=== PATIENT | female | born 1980 | race Caucasian/White ===

== ENCOUNTER → 2020-07-21 11:30 | Outpatient (CLI) | payer OTHER, SELFPAY ==
[2016-03-01 09:05] VITALS: BMI 28.9
[2020-07-21 13:18] LABS: AST(SGOT) 12 U/L (15-37); Alanine Aminotransfer ALT/SGPT 18 U/L (13-56); Alkaline Phosphatase 69 U/L (45-117); Bilirubin, Direct 0.21 mg/dL (0.00-0.30); Ferritin 29 ng/mL (8-252); Globulin 3.7 g/dL (2.2-4.2); Iron 126 ug/dL (50-170); Protein, Total 7.7 g/dL (6.4-8.2); T4 Free Direct 1.54 ng/dL (0.76-1.46); Thyroid Stim Hormone (TSH) 0.06 uIU/mL (0.358-3.74)
[2020-07-21 13:22] LABS: Vitamin B12 339 pg/mL (211-911); Vitamin D,25 Hydroxy 35.1 ng/mL
== END ==
LOC: MFPLAB 11:31
PROVIDERS: PCP Family Medicine; Referring Provider Family Medicine; Visit Provider Family Medicine
DX: E03.9 Hypothyroidism, unspecified (principal); E55.9 Vitamin D deficiency, unspecified; R79.89 Other specified abnormal findings of blood chemistry; R53.83 Other fatigue
CPT/HCPCS: 36415; 80076; 82306; 82607; 82728; 83540; 84439; 84443

== ENCOUNTER → 2023-02-14 | Outpatient (CLI) | payer OTHER, SELFPAY ==
[2023-02-14 17:47] LABS: Color, Urine Yellow (Yellow); Glucose, Dipstick Normal (Normal); Ketone-Dipstick 15 mg/dl (Negative); Leukocyte Esterase-Dipstick 25 /ul (Negative); Nitrite-Dipstick Negative (Negative); Occult Blood-Urine Negative /ul (Negative); Protein-Dipstick 15 mg/dl (Negative); Specific Gravity, Urine 1.025 (1.002-1.030); Urine Bilirubin Dipstick Negative (Negative); Urine Clarity Sl. Cloudy (Clear); Urine Urobilinogen Normal (Normal)
[2023-02-14 17:51] LABS: Hematocrit 42.2 % (37-47); Hemoglobin 13.6 g/dL (12.0-15.0); Mean Corp Hgb Conc 32.2 g/dL (32-36); Mean Corpuscular Hgb 27.6 pg (27.0-32.0); Mean Corpuscular Volume 85.6 fL (81-99); Mean Platelet Vol. 11.5 fl (6.2-12.0); Platelet Count 272 K/mm3 (150-450); RBC Distribution Width CV 13.2 % (11.6-14.6); RBC Distribution Width SD 40.8 fl (35.1-43.9); Red Blood Count 4.93 M/mm3 (4.2-5.4); White Blood Count 7.3 K/mm3 (4.4-11.0)
[2023-02-14 17:59] LABS: Bacteria 1+ /hpf (None Seen); Calcium Oxalate Crystals Ur 1+ /hpf (<or=2+); Mucous, Urine 3+ /hpf (<or=2+); Squamous Epithelial Cells - UA 5-10 SEEN /hpf (5-10)
[2023-02-14 18:00] LABS: Red Blood Cells-Urine 0-5 SEEN /hpf (0-5); White Blood Cells 0-5 SEEN /hpf (0-5)
[2023-02-14 18:03] LABS: Erythrocyte Sedimentation Rate 7 mm/hr (0-30)
[2023-02-14 18:12] LABS: Vitamin B12 237 pg/mL (211-911); Vitamin D,25 Hydroxy 44.6 ng/mL
[2023-02-14 18:23] LABS: ALB/GLOB Ratio 1.2 RATIO (0.9-2.4); AST(SGOT) 17 U/L (15-37); Alanine Aminotransfer ALT/SGPT 16 U/L (13-56); Albumin, Serum 4.3 g/dL (3.2-5.0); Alkaline Phosphatase 70 U/L (45-117); Anion Gap 6 (5-15); BUN 9 mg/dL (7-18); BUN/Creat Ratio 10.9 RATIO (10-20); Bilirubin, Direct 0.13 mg/dL (0.00-0.30); Calcium,Total 9.2 mg/dL (8.5-10.1); Chloride 107 mmol/L (98-107); Creatinine, Serum 0.82 mg/dL (0.55-1.02); EST Glomerular Filtration Rate 81 mL/min (>60); Est Glom Filt Rate - Afr Amer 98 mL/min (>60); Ferritin 20 ng/mL (8-252); Free T3 2.3 pg/mL (2.18-3.98); Globulin 3.6 g/dL (2.2-4.2); Glucose 85 mg/dL (74-106); Iron 46 ug/dL (50-170); Potassium 3.5 mmol/L (3.5-5.1); Protein, Total 7.9 g/dL (6.4-8.2); Sodium Level 137 mmol/L (136-145); T4 Free Direct 0.92 ng/dL (0.76-1.46)
[2023-02-16 04:07] LABS: Thyroid Peroxidase AB > 600 IU/mL (0-34)
== END | disposition home or self-care (01) ==
LOC: MFPLAB 14:31
PROVIDERS: PCP Family Medicine; Visit Provider Family Medicine
DX: Z00.00 Encounter for general adult medical examination without abnormal findings (principal); R53.83 Other fatigue; E55.9 Vitamin D deficiency, unspecified; E03.9 Hypothyroidism, unspecified; R82.2 Biliuria; R80.9 Proteinuria, unspecified
CPT/HCPCS: 36415; 80053; 81001; 82248; 82306; 82607; 82728; 83540; 84439; 84443; 84481; 85027; 85652; 86376

== ENCOUNTER → 2023-05-08 | Outpatient (CLI) | payer OTHER, SELFPAY ==
[2023-05-08 10:56] LABS: Vitamin B12 285 pg/mL (211-911)
[2023-05-09 09:13] LABS: T4 Free Direct 1.03 ng/dL (0.76-1.46)
== END | disposition home or self-care (01) ==
LOC: MFPLAB 08:02
PROVIDERS: PCP Family Medicine; Visit Provider Family Medicine
DX: E03.9 Hypothyroidism, unspecified (principal); E53.8 Deficiency of other specified B group vitamins
CPT/HCPCS: 36415; 82607; 84439; 84443

== ENCOUNTER → 2023-06-14 | Outpatient (CLI) | payer OTHER, SELFPAY ==
[2023-06-14 12:54] LABS: Vitamin B12 524 pg/mL (211-911)
[2023-06-14 12:58] LABS: T4 Free Direct 0.91 ng/dL (0.76-1.46); Thyroid Stim Hormone (TSH) 3.28 uIU/mL (0.358-3.74)
== END | disposition home or self-care (01) ==
LOC: MFPLAB 09:51
PROVIDERS: PCP Family Medicine; Visit Provider Family Medicine
DX: E03.9 Hypothyroidism, unspecified (principal); E53.8 Deficiency of other specified B group vitamins
CPT/HCPCS: 36415; 82607; 84439; 84443

== ENCOUNTER → 2023-07-24 | Outpatient (CLI) | payer OTHER, SELFPAY ==
[2023-07-24 11:01] LABS: Thyroid Stim Hormone (TSH) 5.12 uIU/mL (0.358-3.74)
[2023-07-24 11:20] LABS: Vitamin D,25 Hydroxy 33.6 ng/mL
== END | disposition home or self-care (01) ==
LOC: MFPLAB 09:07
PROVIDERS: PCP Family Medicine; Visit Provider Family Medicine
DX: E03.9 Hypothyroidism, unspecified (principal); E55.9 Vitamin D deficiency, unspecified
CPT/HCPCS: 36415; 82306; 84443

== ENCOUNTER → 2023-08-30 | Outpatient (CLI) | payer OTHER, SELFPAY ==
[2023-08-30 10:43] LABS: T4 Free Direct 1.18 ng/dL (0.76-1.46); Thyroid Stim Hormone (TSH) 1.16 uIU/mL (0.358-3.74)
== END | disposition home or self-care (01) ==
LOC: MFPLAB 09:15
PROVIDERS: PCP Family Medicine; Visit Provider Family Medicine
DX: E03.9 Hypothyroidism, unspecified (principal)
CPT/HCPCS: 36415; 84439; 84443

== ENCOUNTER → 2024-04-08 | Outpatient (CLI) | payer OTHER, SELFPAY ==
[2024-04-08 12:48] LABS: Absolute Lymphocyte Count 2.04 X10^3/uL (0.83-4.51); Absolute Neutrophil Count 2.8 X10^3/uL (2.0-7.7); Basophil# 0.03 X10^3/uL; Basophil% 0.6 % (0-1); Eosinophil# 0.03 X10^3/uL; Eosinophils% 0.6 % (0-5); Hematocrit 41.2 % (37-47); Hemoglobin 13.3 g/dL (12.0-15.0); Lymphocyte # 2.04 X10^3/ul (0.83-4.51); Lymphocyte % 38.9 % (19-41); Mean Corp Hgb Conc 32.3 g/dL (32-36); Mean Corpuscular Hgb 28.4 pg (27.0-32.0); Mean Corpuscular Volume 87.8 fL (81-99); Mean Platelet Vol. 12.3 fl (6.2-12.0); Monocyte# 0.37 X10^3/uL; Monocyte% 7.1 % (0-10); NRBC Flagged by Analyzer 0 % (0-5); Neutrophil # 2.76 X10^3/uL (2.7-7.7); Neutrophil % 52.6 % (47-70); Platelet Count 259 K/mm3 (150-450); RBC Distribution Width CV 12.3 % (11.6-14.6); RBC Distribution Width SD 39.6 fl (35.1-43.9); Red Blood Count 4.69 M/mm3 (4.2-5.4); White Blood Count 5.2 K/mm3 (4.4-11.0)
[2024-04-08 13:06] LABS: Anion Gap 5 (5-15); BUN 12 mg/dL (7-18); BUN/Creat Ratio 14.7 RATIO (10-20); Calcium,Total 9.5 mg/dL (8.5-10.1); Chloride 107 mmol/L (98-107); Creatinine, Serum 0.82 mg/dL (0.55-1.02); EST Glomerular Filtration Rate 81 mL/min (>60); Est Glom Filt Rate - Afr Amer 98 mL/min (>60); Ferritin 55 ng/mL (8-252); Glucose 93 mg/dL (74-106); Iron 96 ug/dL (50-170); Potassium 3.8 mmol/L (3.5-5.1); Sodium Level 138 mmol/L (136-145); Thyroid Stim Hormone (TSH) 0.11 uIU/mL (0.358-3.74)
[2024-04-08 13:07] LABS: Vitamin D,25 Hydroxy 46.8 ng/mL
== END | disposition home or self-care (01) ==
LOC: MFPLAB 09:57
PROVIDERS: PCP Family Medicine; Visit Provider Family Medicine
DX: E03.9 Hypothyroidism, unspecified (principal); L65.9 Nonscarring hair loss, unspecified
CPT/HCPCS: 36415; 80048; 82306; 82728; 83540; 84439; 84443; 85025

== ENCOUNTER → 2024-09-18 | Outpatient (CLI) | payer OTHER, SELFPAY ==
[2024-09-18 15:50] LABS: T4 Free Direct 1.13 ng/dL (0.76-1.46)
== END | disposition home or self-care (01) ==
LOC: MTLAB 13:01
PROVIDERS: PCP Family Medicine; Referring Provider Family Medicine; Visit Provider Family Medicine
DX: E03.9 Hypothyroidism, unspecified (principal)

== ENCOUNTER → 2024-09-30 | Outpatient (CLI) | payer OTHER, SELFPAY ==
--- NOTE | 2024-09-30 11:47 | BI_ITS ---
MAMMOGRAPHY - BILATERAL SCREENING REASON FOR EXAM: Female, 44 years old. Routine annual screening examination. PERTINENT HISTORY: Non-contributory. TECHNIQUE: Digital bilateral breast damir (3D mammographic acquisition) in the CC and MLO projections. 2-D mediolateral oblique (MLO) and craniocaudad (CC) views of both breasts were obtained. CAD: Full Field Digital Mammography with Computer Added Detection was performed. COMPARISON: None. Baseline examination. FINDINGS: Breast Composition: The breasts are heterogeneously dense, which may obscure small masses. There are no dominant masses or suspicious calcifications. No other significant abnormalities are identified. BI/SCRN MAMM (CAD)W/DAMIR BILAT IMPRESSION: Negative screening mammogram. Yearly followup mammogram recommended. (A) ASSESSMENT CATEGORY: BIRADS Category 1: Negative. A letter regarding these results will be sent to the patient by the facility within 30 days. Approximately 10% of breast cancers are not detected by mammography. A normal mammogram should not delay biopsy of a clinically suspicious abnormality. [id number] Electronically Signed: Leland Willams MD at 13:54 EST ,
== END | disposition home or self-care (01) ==
PROVIDERS: PCP Family Medicine; Referring Provider Family Medicine; Visit Provider Family Medicine
DX: Z12.31 Encounter for screening mammogram for malignant neoplasm of breast (principal)
CPT/HCPCS: 77063; 77067

== ENCOUNTER → 2025-03-29 | Outpatient (CLI) | payer OTHER, SELFPAY ==
[2025-03-29 12:05] LABS: Anion Gap 11 (5-15); BUN 10 mg/dL (4-19); BUN/Creat Ratio 12.7 RATIO (10-20); Calcium,Total 9.3 mg/dL (7.6-11.0); Carbon Dioxide 24.2 mmol/L (21.0-32.0); Chloride 105 mmol/L (98-108); Cholesterol 188 mg/dL (<=200); Glucose 86 mg/dL (70-99); Low Density Lipoprotein Calc. 123 mg/dL; Potassium 3.7 mmol/L (3.3-5.1); Triglycerides 59 mg/dL; Very Low Density Lipoprotein 12 mg/dL (5-40); cholesterol:hdl ratio screen 3.52
--- OUTSIDE RECORDS SUMMARY | 2025-03-29 19:40 | XMS RPT_ITS | CCD ---
Author Organization [facility] Care Team Providers Care [place] Worker Name Role Phone Jessica Saravia CNP Unavailable Unavailable Jessica Saravia CNP Unavailable Unavailable Raleigh Meng Unavailable Unavailable Fior Zuñiga Unavailable Unavailable Jessica Saravia CNP Unavailable Unavailable Josi Zapien Unavailable Unavailable Jill Tao MD Primary Care Provider BOBBY LEIJA Attending Unavailable JILL TAO Primary Care UnavailROXANNE Zhu Attending Unavailable BOBBY LIEJA Referring Unavailable JILL TAO Primary Care UnavailJill Juárez Primary Care Unavailable Jill Tao Attending Unavailable Jill Tao Referring Unavailable Jill Tao Primary Care Unavailable Jill Tao Attending Unavailable Jill Tao Primary Care Unavailable Jill Tao Attending Unavailable Jill Tao Referring Unavailable Medications Current Medications Medication Drug Class(es) Dates Sig (Normalized) Sig (Original) acetaminophen 325 mg / oxyCODONE hydrochloride 5 mg oral tablet (3 sources) Opioid Agonist Start: 10-29-2016 take 1 tablet by mouth every four hours as needed oxyCODONE-acetam inophen (PERCOCET) 5-325 mg tablet Take 1 tablet by mouth every 4 hours as needed. 40 tablet 0 10/29/2016 Active ciprofloxacin 3 mg/ml / dexamethasone 1 mg/ml otic suspension (1 source) Corticosteroid, Quinolone Antimicrobial Start: 02-25-2024 ciprofloxacin-de xAMETHasone (CIPRODEX) 0.3-0.1 % otic suspension 4 Drops in LEFT ear(s) twice a day for 14 DAYS 7.5 mL 3 02/25/2024 Active Start: 02-25-2024 ciprofloxacin- dexAMETHasone (CIPRODEX) 0.3-0.1 % otic suspension 4 Drops in LEFT ear(s) twice a day for 14 DAYS 7.5 mL 3 02/25/2024 Active levothyroxine sodium 0.088 mg oral tablet (4 sources) l-Thyroxine Start: 02-23-2016 take 88 ug by mouth once daily Levothyroxine Active 88 MCG PO DAILY February 22, 2016 11:00pm take 1 tablet by mouth once christophe y levothyroxine (SYNTHROID) 112 mcg tablet Take 112 mcg by mouth once daily. 0 Active ofloxacin 3 mg/ml otic solution (2 sources) Quinolone Antimicrobial Start: 07-08-2018 End: 02-25-2024 take 5 drop(s) into the eye(s) twice daily ofloxacin (FLOXIN) 0.3 % otic solution Indications: Mixed hearing loss, bilateral , Cholesteatoma of both ears , Dysfunction of both eustachian tubes , H/O mastoidectomy Use 5 Drops in the left ear twice daily. Until next appointment. May substitute ofloxacin eye drops 1 Bottle 3 07/08/2018 02/25/2024 Discontinued Problems Active Problems Problem Classification Problem Date Documented Date Episodic/Chronic Other ear and sense organ disorders (1 source) Hearing loss; Translations: [Other specified hearing loss, unspecified ear] 01-08-2024 Chronic Other ear and sense organ disorders (4 sources) Mixed conductive and sensorineural hearing loss, bilateral; Translations: [Mixed conductive and sensorineural hearing loss, bilateral] Onset: 08-20-2017 08-20-2017 Chronic Other ear and sense organ disorders (1 source) Other specified hearing loss, unspecified ear; Translations: [Other specified hearing loss, unspecified ear] Onset: 02-25-2024 Chronic Other ear and sense organ disorders (3 sources) Tinnitus of vascular origin; Translations: [Pulsatile tinnitus, bilateral] Onset: 02-25-2024 02-25-2024 Episodic Other ear and sense organ disorders (3 sources) Ear pressure sensation; Translations: [Other specified disorders of ear, bilateral] Onset: 02-25-2024 02-25-2024 Episodic Other ear and sense organ disorders (1 source) Bilateral earache; Translations: [Otalgia, bilateral] 02-25-2024 Episodic Other nervous system disorders (1 source) H/O: ear disorder; Translations: [Personal history of other diseases of the nervous system and sense organs] 02-25-2024 Episodic Other screening for suspected conditions (not mental disorders or infectious disease) (1 source) Encounter for screening mammogram for malignant neoplasm of breast; Translations: [Encounter for screening mammogram for malignant neoplasm of breast] Onset: 10-22-2024 Episodic Otitis media and related conditions (1 source) Chronic tubotympanic suppurative otitis media, left ear; Translations: [Chronic tubotympanic suppurative otitis media] 02-25-2024 Chronic Otitis media and related conditions (4 sources) Dysfunction of bilateral eustachian tubes; Translations: [Unspecified Eustachian tube disorder, bilateral] Onset: 07-10-2016 07-10-2016 Episodic Thyroid disorders (1 source) Hypothyroidism, unspecified; Translations: [Hypothyroidism, unspecified] Onset: 10-14-2024 Chronic Unclassified (1 source) Unknown / UNK(Unknown) Onset: 05-15-2017 Past or Other Problems Problem Classification Problem Date Documented Da te Episodic/Chronic Other ear and sense organ disorders (3 sources) Cholesteatoma; Translations: [Unspecified cholesteatoma, right ear] Onset: 07-10-2016 07-10-2016 Episodic Unclassified (1 source) N92.0~Z11.51 Onset: 05-15-2017 Results Test Name Value Interpretation Reference Range Facility SCRN MAMM (CAD)W/DAMIR BILATo n 09-30-2024 SCRN MAMM (CAD)W/DAMIR BILAT [facility] Imaging Services [address] [place] [id number] SCRN MAMM (CAD)W/DAMIR BILAT MR#: [id number] Acct: [id number] Name: FABIAN MENDOZA Rep #: [id number] : 1980 F 44 From: Leland gunn MD PCP: Dr. Jill Tao MD Status: [facility] Study: SCRN MAMM (CAD)W/DAMIR BILAT Date of Exam: 09/10 11/03 Exam# [id number] Ordering Dr: Jill Tao [id number] MAMMOGRAPHY - BILATERAL SCREENING REASON FOR EXAM: Female, 44 years old. Routine annual screening examination. PERTINENT HISTORY: Non-contributory. TECHNIQUE: Digital bilateral breast damir (3D mammographic acquisition) in the CC and MLO projections. 2-D mediolateral oblique (MLO) and craniocaudad (CC) views of both breasts were obtained. CAD: Full Field Digital Mammography with Computer Added Detection was performed. COMPARISON: None. Baseline examination. FINDINGS: Breast Composition: The breasts are heterogeneously dense, which may obscure small masses. There are no dominant masses or suspicious calcifications. No other significant abnormalities are identified. BI/SCRN MAMM (CAD)W/DAMIR BILAT IMPRESSION: Negative screening mammogram. Yearly followup mammogram recommended. (A) ASSESSMENT CATEGORY: BIRADS Category 1: Negative. A letter regarding these results will be sent to the patient by the facility within 30 days. Approximately 10% of breast cancers are not detected by mammography. A normal mammogram should not delay biopsy of a clinically suspicious abnormality. [id number] Electronically Signed: Leland Willams MD at 13:54 EST , CC: Dr. Jill Tao MD Patient Care Provider: Signed Normal [facility] T4 Free Directon 09-18-2024 T4 FREE DIRECT 1.13 ng/dL Normal 0.76-1.46 [facility] Comment on above: Order Comment: Inter face Comments: overreactive thyroid Order Date: 04/13/24 Order Info: 3026-2 - T4 Comments: overreactive thyroid Order Info: 3016-3 - TSH Order Date: 04/08/24 Order Info: 3024-7 - T4F overreactive thyroid Performed By: #### L 506.0400 #### [facility] [address] [place], [address] T4 Total, Thyroxinon 025 T4 [Mass/Vol] 12.0 ug/dL Normal 4.8-13.9 [facility] Comment on above: Order Comment: Inter face Comments: overreactive thyroid Order Date: 04/13/24 Order Info: 3026-2 - T4 Comments: overreactive thyroid Order Info: 3016-3 - TSH Order Date: 04/08/24 Order Info: 3024-7 - T4F overreactive thyroid Performed By: #### L 501.9520, L501.9310 #### [facility] [address] [facility] [place], [address] Thyroid Stim Hormone (TSH)on 09-18-2024 TSH 2.490 uIU/mL Normal 0.358-3.740 [facility] Comment on above: Order Comment: Inter face Comments: overreactive thyroid Order Date: 04/13/24 Order Info: 3026-2 - T4 Comments: overreactive thyroid Order Info: 3016-3 - TSH Order Date: 04/08/24 Order Info: 3024-7 - T4F overreactive thyroid Performed By: #### L 501.9520, L501.9310 #### [facility] [address] [place], [address] Basic Metabolic Profile (BMP )on 04-08-2024 BUN/CRE 14.7 RATIO Normal 10-20 [facility] Comment on above: Performed By: #### L 503.6150, L100.0100, L500.2500, L501.9520, L506.1000, L506.0400, L503.6550 #### [facility] [address] [place], [address] CA,Total 9.5 mg/dL Normal 8.5-10.1 [facility] Comment on above: Performed By: #### L 503.6150, L100.0100, L500.2500, L501.9520, L506.1000, L506.0400, L503.6550 #### [facility] [address] [place], [address] Chloride [Moles/Vol] 107 mmol/L Normal 98-107 [facility] Comment on above: Performed By: #### L 503.6150, L100.0100, L500.2500, L501.9520, L506.1000, L506.0400, L503.6550 #### [facility] [address] [place], [address] CO2 [Moles/Vol] 26.0 mmol/L Normal 21.0-32.0 [facility] Comment on above: Performed By: #### L 503.6150, L100.0100, L500.2500, L501.9520, L506.1000, L506.0400, L503.6550 #### [facility] [address] [place], [address] Creatinine [Mass/Vol] 0.82 mg/dL Normal 0.55-1.02 [facility] Comment on above: Result Comment: The validity of the calculated GFR GFRAA in patients over 70 years has not been determined. Clinical correlation is essential. Performed By: #### L 503.6150, L100.0100, L500.2500, L501.9520, L506.1000, L506.0400, L503.6550 #### [facility] [address] [place], [address] EST GFR - AA 98 mL/min Normal >60 [facility] Comment on above: Result Comment: Afri can Lebanese GFR Calc Performed By: #### L 503.6150, L100.0100, L500.2500, L501.9520, L506.1000, L506.0400, L503.6550 #### [facility] [address] [place], [address] GAP 5 Normal 5-15 [facility] Comment on above: Performed By: #### L 503.6150, L100.0100, L500.2500, L501.9520, L506.1000, L506.0400, L503.6550 #### [facility] [address] [place], [address] GFR/1.73 sq M.predicted among non-blacks MDRD (S/P/Bld) [Vol rate/Area] 81 mL/min/{1.73_m2} Normal >60 [facility] Comment on above: Result Comment: Non- GFR Calc Performed By: #### L 503.6150, L100.0100, L500.2500, L501.9520, L506.1000, L506.0400, L503.6550 #### [facility] [address] [place], [address] Glucose [Mass/Vol] 93 mg/dL Normal 74-106 [facility] Comment on above: Performed By: #### L 503.6150, L100.0100, L500.2500, L501.9520, L506.1000, L506.0400, L503.6550 #### [facility] [address] [place], [address] Potassium [Moles/Vol] 3.8 mmol/L Normal 3.5-5.1 [facility] Comment on above: Performed By: #### L 503.6150, L100.0100, L500.2500, L501.9520, L506.1000, L506.0400, L503.6550 #### [facility] [address] [place], [address] Sodium [Moles/Vol] 138 mmol/L Normal 136-145 [facility] Comment on above: Performed By: #### L 503.6150, L100.0100, L500.2500, L501.9520, L506.1000, L506.0400, L503.6550 #### [facility] [address] [place], [address] Urea nitrogen [Mass/Vol] 12 mg/dL Normal 7-18 [facility] Comment on above: Performed By: #### L 503.6150, L100.0100, L500.2500, L501.9520, L506.1000, L506.0400, L503.6550 #### [facility] [address] [place], [address] CBC W/Diff, Automatedon 07-3 -2023 Absolute Lymph 2.04 X10 3/uL Normal 0.83-4.51 [facility] Comment on above: Performed By: #### L 503.6150, L100.0100, L500.2500, L501.9520, L506.1000, L506.0400, L503.6550 #### [facility] [address] [place], [address] Absolute Neut 2.8 X10 3/uL Normal 2.0-7.7 [facility] Comment on above: Performed By: #### L 503.6150, L100.0100, L500.2500, L501.9520, L506.1000, L506.0400, L503.6550 #### [facility] [address] [place], [address] Basophils/100 WBC (Bld) 0.6 % Normal 0-1 [facility] Comment on above: Performed By: #### L 503.6150, L100.0100, L500.2500, L501.9520, L506.1000, L506.0400, L503.6550 #### [facility] [address] [place], [address] Eosinophils/100 WBC (Bld) 0.6 % Normal 0-5 [facility] Comment on above: Performed By: #### L 503.6150, L100.0100, L500.2500, L501.9520, L506.1000, L506.0400, L503.6550 #### [facility] [address] [place], [address] Erythrocyte distribution width (RBC) [Ratio] 12.3 % Normal 11.6-14.6 [facility] Comment on above: Performed By: #### L 503.6150, L100.0100, L500.2500, L501.9520, L506.1000, L506.0400, L503.6550 #### [facility] [address] [place], [address] ([address] Hematocrit (Bld) [Volume fraction] 41.2 % Normal 37-47 [facility] Comment on above: Performed By: #### L 503.6150, L100.0100, L500.2500, L501.9520, L506.1000, L506.0400, L503.6550 #### [facility] [address] [place], [address] Hemoglobin (Bld) [Mass/Vol] 13.3 g/dL Normal 12.0-15.0 [facility] Comment on above: Performed By: #### L 503.6150, L100.0100, L500.2500, L501.9520, L506.1000, L506.0400, L503.6550 #### [facility] [address] [place], [address] IG% 0.200 Normal 0.0-0.9 [facility] Comment on above: Result Comment: IG% - Immature Granulocytes (promyelocytes, myelocytes and metamyelocytes) > 1% indicates that a LEFT SHIFT is Present. Performed By: #### L 503.6150, L100.0100, L500.2500, L501.9520, L506.1000, L506.0400, L503.6550 #### [facility] [address] [place], [address] Lymphocytes/100 WBC (Bld) 38.9 % Normal 19-41 [facility] Comment on above: Performed By: #### L 503.6150, L100.0100, L500.2500, L501.9520, L506.1000, L506.0400, L503.6550 #### [facility] [address] [place], [address] MCH (RBC) [Entitic mass] 28.4 pg Normal 27.0-32.0 [facility] Comment on above: Performed By: #### L 503.6150, L100.0100, L500.2500, L501.9520, L506.1000, L506.0400, L503.6550 #### [facility] [address] [place], [address] MCHC (RBC) [Mass/Vol] 32.3 g/dL Normal 32-36 [facility] Comment on above: Performed By: #### L 503.6150, L100.0100, L500.2500, L501.9520, L506.1000, L506.0400, L503.6550 #### [facility] [address] [place], [address] MCV (RBC) [Entitic vol] 87.8 fL Normal 81-99 [facility] Comment on above: Performed By: #### L 503.6150, L100.0100, L500.2500, L501.9520, L506.1000, L506.0400, L503.6550 #### [facility] [address] [place], [address] Monocytes/100 WBC (Bld) 7.1 % Normal 0-10 [facility] Comment on above: Performed By: #### L 503.6150, L100.0100, L500.2500, L501.9520, L506.1000, L506.0400, L503.6550 #### [facility] [address] [place], [address] Neutrophils/100 WBC (Bld) 52.6 % Normal 47-70 [facility] Comment on above: Performed By: #### L 503.6150, L100.0100, L500.2500, L501.9520, L506.1000, L506.0400, L503.6550 #### [facility] [address] [place], [address] Nucleated RBC (Bld) [#/Vol] 0 10*3/uL Normal 0-5 [facility] Comment on above: Performed By: #### L 503.6150, L100.0100, L500.2500, L501.9520, L506.1000, L506.0400, L503.6550 #### [facility] [address] [place], [address] Platelet mean volume (Bld) [Entitic vol] 12.3 fL High 6.2-12.0 [facility] Comment on above: Performed By: #### L 503.6150, L100.0100, L500.2500, L501.9520, L506.1000, L506.0400, L503.6550 #### [facility] [address] [place], [address] Platelets (Bld) [#/Vol] 259 10*3/uL Normal 150-450 [facility] Comment on above: Performed By: #### L 503.6150, L100.0100, L500.2500, L501.9520, L506.1000, L506.0400, L503.6550 #### [facility] [address] [place], [address] RBC (Bld) [#/Vol] 4.69 10*6/uL Normal 4.2-5.4 [facility] Comment on above: Performed By: #### L 503.6150, L100.0100, L500.2500, L501.9520, L506.1000, L506.0400, L503.6550 #### [facility] [address] [place], [address] RDW SD 39.6 fl Normal 35.1-43.9 [facility] Comment on above: Performed By: #### L 503.6150, L100.0100, L500.2500, L501.9520, L506.1000, L506.0400, L503.6550 #### [facility] [address] [place], [address] WBC (Bld) [#/Vol] 5.2 10*3/uL Normal 4.4-11.0 [facility] Comment on above: Performed By: #### L 503.6150, L100.0100, L500.2500, L501.9520, L506.1000, L506.0400, L503.6550 #### [facility] [address] [place], [address] Ferritinon 04-08-2024 Ferritin [Mass/Vol] 55 ng/mL Normal 8-252 [facility] Comment on above: Performed By: #### L 503.6150, L100.0100, L500.2500, L501.9520, L506.1000, L506.0400, L503.6550 #### [facility] [address] [place], [address] Ironon 04-08-2024 Iron [Mass/Vol] 96 ug/dL Normal 50-170 [facility] Comment on above: Performed By: #### L 503.6150, L100.0100, L500.2500, L501.9520, L506.1000, L506.0400, L503.6550 #### [facility] [address] [place], [address] T4 Free Directon 07-31-2024 T4 FREE DIRECT 1.20 ng/dL Normal 0.76-1.46 [facility] Comment on above: Order Comment: JESU Samuel ADD T4F PER Performed By: #### L 503.6150, L100.0100, L500.2500, L501.9520, L506.1000, L506.0400, L503.6550 #### [facility] [address] [place], [address] Thyroid Stim Hormone (TSH)on 04-08-2024 TSH 0.11 uIU/mL Low 0.358-3.74 [facility] Comment on above: Performed By: #### L 503.6150, L100.0100, L500.2500, L501.9520, L506.1000, L506.0400, L503.6550 #### [facility] [address] [place], [address] Vitamin D,25 Hydroxyon 04-08 Vitamin D 25-OH 46.8 ng/mL Normal [facility] Comment on above: Result Comment: Sarah min D 25(OH) Status Range Deficiency <20 ng/mL (50nmol/L) Insufficiency 20 - 30 ng/mL (50 - 75 nmol/L) Sufficiency 30 - 100 ng/mL (75 - 250 nmol/L) Toxicity >100 ng/mL (>250 nmol/L) Performed By: #### L 503.6150, L100.0100, L500.2500, L501.9520, L506.1000, L506.0400, L503.6550 #### [facility] [address] [place], [address] CNOVon 02-25-2024 CNOV Office Visit (OTOLMN) DICHLER,FABIAN ([id number]) 1980 F Date Time Provider Department 02/25/24 8:00 AM BOBBY LEIJA OTANNABELLE During your visit today, we recorded the following information about you: Dilcia Bergeron RN 02/25/2024 8:12 AM Signed Tobacco Use: Never Was smoking cessation packet given? N/A - Patient is a non-smoker or quit >1 year ago. Was a referral initiated?N/A Patient is a non-smoker Bobby Leija MD 02/25/2024 8:40 AM Signed SECTION OF OTOLOGY, NEUROTOLOGY AND LATERAL SKULL BASE SURGERY [facility] [place], [facility] Referred by No ref. provider found Chief Complaint: Left sided drainage HPI: Fabian Mendoza is a 43 year old female who reports Previous history 2012: Left ear. Tplasty with OCR. Pato. 2017: Right ear. R Tmastoid Right cholesteatoma status post right tympanoplasty and mastoid Left T-tube placement Bilateral eustachian tube dilation in October 2016. Previously taken care of by Dr. Borja felt fullness in her right ear more than her left ear. Dr. Borja Noted that there was irregularity in the attic of the left ear. Possible recurrent cholesteatoma of the left side on Dr. Lee last evaluation. Bilateral moderate sloping to profound sensorineural hearing loss Word recognition score 100% AD; 90 left ear Today: She explains that for the last year her left ear has been draining. Feels like her left ear is muffled. Denies pain. She is using her hearing aids and denies a big change in her hearing. Past Medical History: She has a past medical history of Cholesteatoma (02/2012) and Hypothyroid. Past Surgical History: She has a past surgical history that includes ear surgery hx (Right, 02/2012) and myringotomy with insertion otolaryn (Left, 02/2012). Social History: She reports that she has never smoked. She has never used smokeless tobacco. She reports that she does not drink alcohol. Physical Exam: A comprehensive ear, nose, throat/head and neck exam was performed. Pertinent findings include: See nurse intake for vitals Ears: Right ear - Pinna normal EAC clear TM reconstructed with cartilage graft prominent in posterior/superior quadrant. Anterior aspect of pars tensa was covered with myringosclerosis.. Left ear - Pinna normal EAC coated with cerumen. Thin sheet of cerumen., TM surface irregular. Granulation tissue on the posterior superior aspect of pars tensa extending towards the tube. This was then granulation tissue. The tube was removed. Neuro - Cranial Nerves: CN V - intact Right CN 7 - HB 1 Left CN 7 - HB 1 No dysphonia or dysarthria Shoulder and/or SCM strength normal Constitutional: Well appearing, typically developed, no acute distress Eyes: extra-ocular muscles intact, sclera white, pupils grossly symmetric Lymphatic: no visible cervical lymphadenopathy Respiratory: unlabored breathing with no grossly audible stridor or wheezing Skin: no obvious skin lesions of visible skin of face, neck PROCEDURE NOTE: Otomicroscopy A microscope was used to evaluate the ears. Micro-instruments (curettes and/or suction) were used to clean the ear canal and obtain a clear view of the tympanic membranes. All relevant findings are detailed in the Physical Exam findings as listed above. The patient tolerated the procedure well and there were no complications. Audiogram (personally reviewed and interpreted): A screenshot of the audiogram from 02/25/2024 is included if available electronically at the time of the visit. Moderate sloping to profound mixed hearing loss; WRS 100 AD, 90 Imaging (personally reviewed and interpreted): No imaging Assessment: Left sided chronic otitis media secondary to t-tube. T-tube removed. History of bilateral cholesteatoma s/p right sided Tmastoid in 2016 and left sided tympanoplasty with OCR in 2011. No evidence of cholesteatoma today. Plan: Ciprodex drops bid for 14 days. Return to clinic in 1 month. If drainage persists, then we recommend CT Temporal Bone. Bobby Leija III, MD Allergies As of Date: 02/25/2024 (No Known Allergies) Date Reviewed: 02/25/2024 Reviewed by: Dilcia Bergeron RN - Fully Assessed Reason for Visit: Ear Problem [38] Cmt: L ear, drainage, ringing, fullness. Worsened over the last year Primary Visit Diagnosis:Chronic tubotympanic suppurative otitis media of left ear [H66.12] Other Visit Diagnosis:History of cholesteatoma [Z86.69] Order(s):ciprofloxac in-dexAMETHasone (CIPRODEX) 0.3-0.1 % otic suspension4 Drops in LEFT ear(s) twice a day for 14 DAYSDisp: 7.5 mLRfl: 3 Prescriptions as of 02/25/2024 - levothyroxine (SYNTHROID) 112 mcg tablet Take 112 mcg by mouth once daily. - ciprofloxacin-dexAME THasone (CIPRODEX) 0.3-0.1 % otic suspension 4 Drops in LEFT ear(s) twice a day for 14 DAYS - oxyCODONE-acetaminop hen (PERC (more content not included)... Normal [facility] CNOV Office Visit (CDISMN) CHRISTINAWENDI LOPEZN ([id number]) 1980 F Date Time Provider Department 02/25/24 7:30 AM [facility] During your visit today, we recorded the following information about you: Roxanne Barraza AUD 02/25/2024 1:42 PM Signed [facility] [place] AUDIOLOGIC EVALUATION REPORT Name: Fabian Mendoza CC#: [id number] Date of Service: 02/25/2024 Date of : 1980 Age: [age] year old Referred by: Bobby Leija MD [address] [place] [address] Referred for: Evaluation of suspected change in hearing, tinnitus, or balance. Referral documented: In an order in Epic (procedure tab) Patient's major complaints: Reduced hearing left ear greater than right ear, tinnitus in both ears, dizziness/vertigo/im balance, re-test hearing bilateral, otalgia in both ears, pressure/fullness in both ears Fabian was seen for repeat audiologic evaluation at the request of Bobby Leija MD, with complaints of bilateral otalgia, decreased hearing sensitivity of both ears, bilateral aural fullness and bilateral pulsatile tinnitus. She denied that the pulsating tinnitus corresponds with her heartbeat. Patient reported occasional unsteadiness when standing up too quickly. Otologic history is significant for bilateral cholesteatoma, bilateral eustachian tube dysfunction, bilateral mixed hearing loss; right tympanomastoidectomy with ossicular chain reconstruction (s/p 10/29/2016), bilateral eustachian tube dilation and left T-tube placement (s/p 10/29/2016). Patient has OtSoFits.Me Opn 3 miniRITE devices dispensed at this clinic in 2018. She reported she has not been utilizing her devices lately due to perceived otalgia. Today patient denied history of noise exposure or ototoxicity. IMPRESSIONS RIGHT EAR: Mixed (conductive and sensorineural) hearing loss LEFT EAR: Mixed (conductive and sensorineural) hearing loss Comparison of today's results with previous test results (08/20/2017): Today's results reveal no significant change in hearing sensitivity in either ear. AUDIOLOGIC EVALUATION Following is a brief interpretation of the obtained findings from the audiologic evaluation. Refer to the Auditory Test Record for complete audiometric results. The patient was counseled about the test findings and appropriate audiologic recommendations were made. SUMMARY: Audiogram can be viewed under Forms/Audiology/Smar tForm. OTOSCOPY RIGHT EAR: Otoscopic inspection revealed ear canal was clear. LEFT EAR: Otoscopic inspection revealed ear canal was clear with T-tube visualized. TYMPANOMETRY Description of procedure: This test is an objective evaluation of middle ear function. CPT code: 62267 RIGHT EAR: Normal ME pressure with reduced TM compliance (mobility). LEFT EAR: Negative (-239 daPa) pressure with reduced TM compliance (mobility). ACOUSTIC REFLEXES Description of procedure: This test is an objective measure of auditory and facial nerve pathways. RIGHT EAR PROBE EAR: (ipsi right stimulus ear; contralateral left stimulus ear): Acoustic Reflex Pattern Did not test. Acoustic Reflex Decay (left stimulus ear): Did not test. LEFT EAR PROBE EAR: (ipsi left stimulus ear; contralateral right stimulus ear): Acoustic Reflex Pattern Did not test. Acoustic Reflex Decay (right stimulus ear):Did not test. PURE TONE AUDIOMETRY AND SPEECH TESTING Description of procedure: This test is an objective evaluation hearing sensitivity via air and bone conduction and speech recognition testing. CPT code: 15203 RIGHT EAR: Hearing Sensitivity: Mild sloping to profound mixed hearing loss. Word Recognition Score: Excellent (100%). WRS is consistent with hearing sensitivity. Words were presented at 75 dB HL is above (greater than or equal to 60 dB HL) intensity level for average conversational speech. The NU-6 Ordered by Difficulty Word List (10 words) was used for testing. Contralateral masking was used. LEFT EAR: Hearing Sensitivity: Moderate sloping to profound mixed hearing loss. Word Recognition Score: Excellent (90%). WRS is consistent with hearing sensitivity. Words were presented at 75 dB HL which is above (greater than or equal to 60 dB HL) intensity level for average conversational speech. The NU-6 Ordered by Difficulty Word List (10 words) was used for testing. Contralateral masking was used. RECOMMENDATIONS *Continue medical follow up with Bobby Leija MD. *Recommend patient return for a hearing aid check with betting agency counter clerk for maintenance and potential programming needs. *Retest as medically indicated. Nancy Alonzo BA Doctor of Audiology (Inder) Rn Endocrinology Testing was obtained under the direct supervision of Inder Ward CCC-A I verify that I have reviewed the history, test results, and interpretation for this patient. Inder Ward CCC-A [employer]ising Camp Director FLORECITA Parsons (more content not included)... Normal [facility] HEARING TEST/AUDIOGRAMon [facility] Laboratory - Chemistry and C hemistry - challengeOrdered By: Toribio Tao on 08-30-2023 Free T4 [Mass/Vol] 1.18 ng/dL 0.76-1.46 [facility] No Panel InformationOrdered By: Toribio Tao on 08-30-2023 Thyroid Stimulating Hormone (TSH) 1.16 uIU/mL 0.358-3.74 [facility] No Panel InformationOrdered By: Toribio Tao on 07-24-2023 Thyroid Stimulating Hormone (TSH) 5.12 uIU/mL 0.358-3.74 [facility] Vitamin D 25-Hydroxy 33.6 ng/mL [facility] Comment on above: Vitamin D 25(OH) Sta tus Range Deficiency <20 ng/mL (50nmol/L) Insufficiency 20 - 30 ng/mL (50 - 75 nmol/L) Sufficiency 30 - 100 ng/mL (75 - 250 nmol/L) Toxicity >100 ng/mL (>250 nmol/L) Laboratory - Chemistry and C hemistry - challengeOrdered By: Toribio Tao on 06-14-2023 Cobalamin (Vitamin B12) [Mass/Vol] 524 pg/mL [facility] Free T4 [Mass/Vol] 0.91 ng/dL 0.76-1.46 [facility] No Panel InformationOrdered By: Toribio Tao on 06-14-2023 Thyroid Stimulating Hormone (TSH) 3.28 uIU/mL 0.358-3.74 [facility] Laboratory - Chemistry and C hemistry - challengeOrdered By: Toribio Tao on 05-08-2023 Cobalamin (Vitamin B12) [Mass/Vol] 285 pg/mL [facility] Free T4 [Mass/Vol] 1.03 ng/dL 0.76-1.46 [facility] No Panel InformationOrdered By: Toribio Tao on 05-08-2023 Thyroid Stimulating Hormone (TSH) 4.60 uIU/mL 0.358-3.74 [facility] Basophil percentageOrdered B y: Toribio Tao on 02-14-2023 Basophil percentage 0-5 SEEN /hpf 0-5 [facility] Bilirubin [Mass/Vol] 0.70 mg/dL 0.20-1.00 [facility] Comment on above: For patients on eltr ombopag therapy, use of Dimension [place] TBIL is not recommended. Chloride [Moles/Vol] 107 mmol/L 98-107 [facility] Glucose [Mass/Vol] 85 mg/dL 74-106 [facility] Potassium [Moles/Vol] 3.5 mmol/L 3.5-5.1 [facility] Protein [Mass/Vol] 7.9 g/dL 6.4-8.2 [facility] Sodium [Moles/Vol] 137 mmol/L 136-145 [facility] WBC (Bld) [#/Vol] 7.3 10*3/uL 4.4-11.0 [facility] Bilirubin Test strip Ql (U)O rdered By: Toribio Tao on 02-14-2023 Bilirubin Ql (U) Negative Negative [facility] Blood erythrocytes count (nu mber/volume)Ordered By: Toribio Tao on 02-14-2023 RBC (Bld) [#/Vol] 4.93 10*6/uL 4.2-5.4 [facility] Blood hemoglobin measurement (mass/volume)Ordered By: Toribio Tao on 02-14-2023 Hemoglobin (Bld) [Mass/Vol] 13.6 g/dL 12.0-15.0 [facility] Blood platelet mean volumeOr dered By: Toribio Tao on 02-14-2023 Platelet mean volume (Bld) [Entitic vol] 11.5 fL 6.2-12.0 [facility] Calcium oxalate crystals det ection in urine sediment by light microscopyOrdered By: Toribio Tao on 02-14-2023 Calcium oxalate crystals LM Ql (Urine sed) 1+ /hpf [facility] Determination of erythrocyte mean corpuscular volume (MCV)Ordered By: Toribio Tao on 02-14-2023 MCV (RBC) [Entitic vol] 85.6 fL 81-99 [facility] Direct bilirubinOrdered By: Toribio Tao on 02-14-2023 Bilirubin.direct [Mass/Vol] 0.13 mg/dL 0.00-0.30 [facility] Erythrocyte sedimentation ra teOrdered By: Toribio Tao on 02-14-2023 ESR (Bld) [Velocity] 7 mm/h 0-30 [facility] Hematocrit Auto (Bld) [Volum e fraction]Ordered By: Toribio Tao on 02-14-2023 Hematocrit (Bld) [Volume fraction] 42.2 % 37-47 [facility] Iron measurement (mass/mass) Ordered By: Toribio Tao on 02-14-2023 Iron (Unsp spec) [Mass/Mass] 46 ug/dL 50-170 [facility] Ketones Test strip Ql (U)Ord ered By: Toribio Tao on 02-14-2023 Ketones Ql (U) 15 mg/dl Negative [facility] Laboratory - Chemistry and C hemistry - challengeOrdered By: Toribio Tao on 02-14-2023 ALP [Catalytic activity/Vol] 70 U/L 45-117 [facility] ALT [Catalytic activity/Vol] 16 U/L 13-56 [facility] CO2 [Moles/Vol] 24.0 mmol/L 21.0-32.0 [facility] Cobalamin (Vitamin B12) [Mass/Vol] 237 pg/mL 211-911 [facility] Free T4 [Mass/Vol] 0.92 ng/dL 0.76-1.46 [facility] Globulin (S) [Mass/Vol] 3.6 g/dL 2.2-4.2 [facility] Urea nitrogen/Creatinine [Mass ratio] 10.9 mg/mg 10-20 [facility] Laboratory - Hematology and Cell countsOrdered By: Toribio Tao on 02-14-2023 Erythrocyte distribution width (RBC) [Entitic vol] 40.8 fL 35.1-43.9 [facility] Erythrocyte distribution width (RBC) [Ratio] 13.2 % 11.6-14.6 [facility] MCH (RBC) [Entitic mass] 27.6 pg 27.0-32.0 [facility] MCHC Auto (RBC) [Mass/Vol]Or dered By: Toribio Tao on 02-14-2023 MCHC (RBC) [Mass/Vol] 32.2 g/dL 32-36 [facility] Mucus LM Ql (Urine sed)Order ed By: Toribio Tao on 02-14-2023 Mucus Ql (Urine sed) 3+ /hpf [facility] Nitrite Test strip Ql (U)Ord ered By: Toribio Tao on 02-14-2023 Nitrite Ql (U) Negative Negative [facility] No Panel InformationOrdered By: Toribio Tao on 02-14-2023 Estimated GFR (MDRD) Amer 98 mL/min >60 [facility] Comment on above: GFR Calc Estimated GFR (MDRD) Non-Af Amer 81 mL/min >60 [facility] Comment on above: Non- GFR Calc Free Triiodothyronine (T3) pg/dL 2.3 pg/mL 2.18-3.98 [facility] Thyroid Stimulating Hormone (TSH) 15.40 uIU/mL 0.358-3.74 [facility] Vitamin D 25-Hydroxy 44.6 ng/mL [facility] Comment on above: Vitamin D 25(OH) Sta tus Range Deficiency <20 ng/mL (50nmol/L) Insufficiency 20 - 30 ng/mL (50 - 75 nmol/L) Sufficiency 30 - 100 ng/mL (75 - 250 nmol/L) Toxicity >100 ng/mL (>250 nmol/L) Platelets bldOrdered By: Shabana camiqingarsenio Aislinn on 02-14-2023 Platelets (Bld) [#/Vol] 272 10*3/uL 150-450 [facility] Protein Test strip Ql (U)Ord ered By: Toribio Tao on 02-14-2023 Protein Ql (U) 15 mg/dl Negative [facility] Serum or plasma albumin teddy urement (mass/volume)Ordered By: Toribio Tao on 02-14-2023 Albumin [Mass/Vol] 4.3 g/dL 3.2-5.0 [facility] Serum or plasma albumin/glob ulin mass ratioOrdered By: Toribio Tao on 02-14-2023 Albumin/Globulin [Mass ratio] 1.2 {ratio} 0.9-2.4 [facility] Serum or plasma calcium teddy urement (mass/volume)Ordered By: Toribio Tao on 02-14-2023 Calcium [Mass/Vol] 9.2 mg/dL 8.5-10.1 [facility] Serum or plasma creatinine m easurement (mass/volume)Ordered By: Toribio Tao on 02-14-2023 Creatinine [Mass/Vol] 0.82 mg/dL 0.55-1.02 [facility] Comment on above: The validity of the calculated GFR & GFRAA in patients over 70 years has not been determined. Clinical correlation is essential. Serum or plasma ferritin nancy surement (mass/volume)Ordered By: Toribio Tao on 02-14-2023 Ferritin [Mass/Vol] 20 ng/mL 8-252 [facility] Serum or plasma thyroperoxid ase antibody assay (units/volume)Ordered By: Toribio Tao on 02-14-2023 TPO Ab Qn [IU]/mL 0-34 [facility] Comment on above: Performed at: [address] [id number] Director: Bolivar Golden PhD, Phone: [phone] Serum or plasma urea nitroge n measurement (mass/volume)Ordered By: Toribio Tao on 02-14-2023 Urea nitrogen [Mass/Vol] 9 mg/dL 7-18 [facility] Squamous epithelial cells de tection in urine sediment by light microscopyOrdered By: Toribio Tao on 02-14-2023 Epithelial cells.squamous LM Ql (Urine sed) 5-10 SEEN /hpf 5-10 [facility] Thin prep Papanicolaou smear with manual screeningOrdered By: Toribio Tao on 02-14-2023 Thin prep Papanicolaou smear with manual screening 17 U/L 15-37 [facility] Thin prep Papanicolaou smear with manual screening 6 5-15 [facility] Urine blood detectionOrdered By: Toribio Tao on 02-14-2023 RBC Ql (U) Negative Negative [facility] RBC Ql (U) 0-5 SEEN /hpf 0-5 [facility] Urine clarityOrdered By: Shabana Tao on 02-14-2023 Clarity (U) Sl. Cloudy Clear [facility] Urine color determinationOrd ered By: Toribio Tao on 02-14-2023 Color (U) Yellow Yellow [facility] Urine glucose detectionOrder ed By: Toribio Tao on 02-14-2023 Glucose Ql (U) Normal mg/dl Normal [facility] Urine leukocyte esterase det ection by dipstickOrdered By: Toribio Tao on 02-14-2023 Leukocyte esterase Test strip Ql (U) 25 /ul Negative [facility] Urine pHOrdered By: Jarred Tao on 02-14-2023 pH (U) 6.0 [pH] 5.0 - 8.0 [facility] Urine sediment bacteria coun t by microscopy (number/high power field)Ordered By: Toribio Tao on 02-14-2023 Bacteria LM.HPF (Urine sed) [#/Area] 1 /[HPF] None Seen [facility] Urine specific gravity measu rementOrdered By: Toribio Tao on 02-14-2023 Specific gravity (U) [Rel density] 1.025 1.002-1.030 [facility] Urobilinogen Auto test strip Ql (U)Ordered By: Toribio Tao on 02-14-2023 Urobilinogen Ql (U) Normal mg/dl [facility] HCGQon 06-19-2017 HCG Qn 2 MIU/ML Normal less than 3 [facility] Comment on above: Result Comment: KALPANA BROWN COMMENTSLess than 5 mIU/ML NEGATIVE FOR PREGNANCY5-25 mIU/ML BORDERLINE; RETEST IN 48 HOURS, IF INDICATEDGreater than 25 mIU/ML POSITIVE FOR PREGNANCYWEEKS POST LMP RANGE IN mIU/ML* 3-4 9-130 4-5 75-2600 5-6 [phone] 6-7 [phone] 7-12 [phone] 12-16 [phone] 16-29 1400-99975 29-41 [phone] *These ranges are from published literature and may not be appropriate for all cases. When HCG levels are above 4000 mIU/ML, distinction between normal and abnormal is poor. The rate of change (doubling time) may be helpful. (Reference: [facility] ) Performed By: #### L 500.87803, L550.28968 ####[facility] [id number] [place], [place] [address]Zu# [phone] HCGQon 06-05-2017 HCG Qn 40 MIU/ML Normal less than 3 [facility] Comment on above: Result Comment: KALPANA BROWN COMMENTSLess than 5 mIU/ML NEGATIVE FOR PREGNANCY5-25 mIU/ML BORDERLINE; RETEST IN 48 HOURS, IF INDICATEDGreater than 25 mIU/ML POSITIVE FOR PREGNANCYWEEKS POST LMP RANGE IN mIU/ML* 3-4 9-130 4-5 75-2600 5-6 [phone] 6-7 [phone] 7-12 [phone] 12-16 [phone] 16-29 1400-58702 29-41 [phone] *These ranges are from published literature and may not be appropriate for all cases. When HCG levels are above 4000 mIU/ML, distinction between normal and abnormal is poor. The rate of change (doubling time) may be helpful. (Reference: [facility] ) Performed By: #### L 500.63181, L550.00243 ####[facility] [id number] [place], [place] [address]Mi# [phone] HCGon 05-28-2017 HCG Qn Positive Normal NEGATIVE [facility] Comment on above: Performed By: #### L 500.81521, L550.78158 ####[facility] [id number] [place], [place] [address]Ku# [phone] HCGQon 05-27-2017 HCG Qn 130 MIU/ML Normal less than 3 [facility] Comment on above: Result Comment: KALPANA BROWN COMMENTSLess than 5 mIU/ML NEGATIVE FOR PREGNANCY5-25 mIU/ML BORDERLINE; RETEST IN 48 HOURS, IF INDICATEDGreater than 25 mIU/ML POSITIVE FOR PREGNANCYWEEKS POST LMP RANGE IN mIU/ML* 3-4 9-130 4-5 75-2600 5-6 [phone] 6-7 [phone] 7-12 90404-147944 12-16 [phone] 16-29 1400-26529 29-41 [phone] *These ranges are from published literature and may not be appropriate for all cases. When HCG levels are above 4000 mIU/ML, distinction between normal and abnormal is poor. The rate of change (doubling time) may be helpful. (Reference: [facility] ) Performed By: #### L 500.56143, L550.56256 ####[facility] [id number] [place], [place] [address]Sz# [phone] HCGQon 05-20-2017 HCG Qn 504 MIU/ML Normal less than 3 [facility] Comment on above: Result Comment: KALPANA BROWN COMMENTSLess than 5 mIU/ML NEGATIVE FOR PREGNANCY5-25 mIU/ML BORDERLINE; RETEST IN 48 HOURS, IF INDICATEDGreater than 25 mIU/ML POSITIVE FOR PREGNANCYWEEKS POST LMP RANGE IN mIU/ML* 3-4 9-130 4-5 75-2600 5-6 [phone] 6-7 [phone] 7-12 [phone] 12-16 [phone] 16-29 [phone] 29-41 [phone] *These ranges are from published literature and may not be appropriate for all cases. When HCG levels are above 4000 mIU/ML, distinction between normal and abnormal is poor. The rate of change (doubling time) may be helpful. (Reference: [facility] ) Performed By: #### L 550.00999 ####[facility] [id number] [place], [place] [address]Kc# [phone] ABO/RHon 05-18-2017 BLOOD TYPE Negative Normal [facility] HCGQon 05-18-2017 HCG Qn 973 MIU/ML Normal less than 3 [facility] Comment on above: Result Comment: REFE STEPHANIE COMMENTSLess than 5 mIU/ML NEGATIVE FOR PREGNANCY5-25 mIU/ML BORDERLINE; RETEST IN 48 HOURS, IF INDICATEDGreater than 25 mIU/ML POSITIVE FOR PREGNANCYWEEKS POST LMP RANGE IN mIU/ML* 3-4 9-130 4-5 75-2600 5-6 [phone] 6-7 [phone] 7-12 [phone] 12-16 [phone] 16-29 1400-19578 29-41 [phone] *These ranges are from published literature and may not be appropriate for all cases. When HCG levels are above 4000 mIU/ML, distinction between normal and abnormal is poor. The rate of change (doubling time) may be helpful. (Reference: [facility] ) Performed By: #### L 500.28830, L500.90291, L550.44047 ####[facility] [id number] [place], [place] [address]Mw# [phone] PATIENT RETYPEon 05-18-2017 RETYPE INTERP Negative Normal [facility] T3 FREEon 05-18-2017 Triiodothyronine (T3) free 2.70 pg/mL Normal 2.18-3.98 [facility] Comment on above: Performed By: #### L 500.68914, L500.60277, L550.64568 ####[facility] [id number] [place], [place] [address]Wu# [phone] T4 FREEon 05-18-2017 Thyroxine (T4) free 0.84 ng/dL Normal 0.76-1.46 [facility] Comment on above: Performed By: #### L 500.84383, L500.98164, L550.75376 ####[facility] [id number] [place], [place] [address]Ai# [phone] PCR GC AND CHLAMon 7 PCR CHLAMYDIA NOT DETECTED Normal NOT DETECTD [facility] Comment on above: Performed By: #### L 770.48190 ####[facility] [id number] [place] [address]Pr# [phone] PCR GONORRHOEAE NOT DETECTED Normal NOT DETECTD [facility] Comment on above: Performed By: #### L 770.71322 ####[facility] [id number] [place] [address]Mm# [phone] CBCon 05-15-2017 Erythrocyte distribution width Auto Ratio (RBC) 13.2 % Normal 11-14.5 [facility] Comment on above: Performed By: #### L 200.30257 ####[facility] [id number] [place], [place] [address]Kg# [phone] Erythrocytes (RBC) 0.0 % Normal Less than 1 [facility] Comment on above: Performed By: #### L 200.98552 ####[facility] [id number] [place], [place] [address]Yo# [phone] Erythrocytes (RBC) 4.45 M/CU MM Normal 3.90-5.30 [facility] Comment on above: Performed By: #### L 200.78802 ####[facility] [id number] [place], [place] [address]Kj# [phone] Hematocrit (HCT) 37.6 % Normal 35.0-47.0 [facility] Comment on above: Performed By: #### L 200.77032 ####[facility] [id number] [place], [place] [address]Mr# [phone] Hemoglobin mass conc (Bld) 12.1 g/dL Normal 11.5-15.5 [facility] Comment on above: Performed By: #### L 200.16991 ####[facility] [id number] [place], [place] [address]Wa# [phone] MCHC mass conc (RBC) 32.2 g/dL Normal 32.0-36.0 [facility] Comment on above: Performed By: #### L 200.62076 ####[facility] [id number] [place], [place] [address]Ot# [phone] MCV 84.5 fL Normal 80.0-99.0 [facility] Comment on above: Performed By: #### L 200.03679 ####[facility] [id number] [place], [place] [address]Ot# [phone] Platelet mean volume (PMV) 11.7 fL Normal 9.4-12.4 [facility] Comment on above: Performed By: #### L 200.21335 ####[facility] [id number] [place], [place] [address]Wn# [phone] Platelets 254 K/CU MM Normal 150-450 [facility] Comment on above: Performed By: #### L 200.30549 ####[facility] [id number] [place], [place] [address]Ip# [phone] WBC (Leukocytes) 6.9 K/CU MM Normal 4.5-11.0 [facility] Comment on above: Performed By: #### L 200.17005 ####[facility] [id number] [place], [place] [address]Hl# [phone] HCGQon 05-15-2017 HCG Qn 1675 MIU/ML Normal less than 3 [facility] Comment on above: Result Comment: KALPANA BROWN COMMENTSLess than 5 mIU/ML NEGATIVE FOR PREGNANCY5-25 mIU/ML BORDERLINE; RETEST IN 48 HOURS, IF INDICATEDGreater than 25 mIU/ML POSITIVE FOR PREGNANCYWEEKS POST LMP RANGE IN mIU/ML* 3-4 9-130 4-5 75-2600 5-6 [phone] 6-7 [phone] 7-12 [phone] 12-16 [phone] 16-29 1400-51550 29-41 [phone] *These ranges are from published literature and may not be appropriate for all cases. When HCG levels are above 4000 mIU/ML, distinction between normal and abnormal is poor. The rate of change (doubling time) may be helpful. (Reference: [facility] ) Performed By: #### L 500.76775, L550.24203 ####[facility] [id number] [place], [place] [address]Pa# [phone] PAP SMEARon 05-15-2017 PAP SMEAR Patient: FABIAN MENDOZA ----Specimen: [id number] Spec Type: PAP SMEAR Ord. Dr.: Jessica Saravia CNP Status: SOUT Collect Date: 05/15/17 1050 Received Date: 05/16/17 1111Source: CERVICAL/ENDOCERVICA L() Procedure: CYTO PAP TLP MS Comments: ThinPrep Vial PAP QUESTIONNAIRE Patient: FABIAN MENDOZA ? - control? - Age/Sex: 37/F F ? - Hormones? - Col Date: 05/15/17 Menopausal? - Hyster? - LMP: 04/25/17 Pertinent Hx: Z11.51 CYTOLO GY REPORT ------ SPECIMEN ADEQUACY: SATISFACTORY, ENDOCERVICAL AND/OR METAPLASTIC CELLS PRESENT. PARTIALLY OBSCURING INFLAMMATION PRESENT. DESCRIPTIVE DIAGNOSIS: NEGATIVE FOR INTRAEPITHELIAL LESION OR MALIGNANCY. INFLAMMATORY CELL CHANGES. HPV TESTING: HPV, HIGH-RISK: NEGATIVE. THIS HPV TEST DETECTS THIRTEEN HIGH-RISK TYPES (16,18,31,33,35,39,4 5,51,52,56,58,59,68) TEST PERFORMED AT [address] [address] Signed Verified/Reviewed by MERISSA KHAN 05/21/[address] [facility] NAME: FABIAN MENDOZA [address] [facility] UNIT#: [id number] LOC: [place] [address] : : 82 AGE/SEX: FAX: ORD.Jessica Pizano [employer]ARD TUB WASHER END OF REPORT Normal [facility] Glenna TSHon 05-15-2017 Thyroid stimulating hormone (TSH) 10.200 UIU/ML High 0.358-3.740 [facility] Comment on above: Result Comment: 3rd generation ultra sensitive TSH Performed By: #### L 500.21849, L550.95007 ####[facility] [id number] [place], [place] [address]Fs# [phone] Vital Signs Date Time Vital Sign Value Performing Clinician Julia castellon 02-14-2023 14:30-0400 Body height 170.18 cm [facility] Encounters Encounter Date Encounter Type Care Provider Facility Start: 09-30-2024 End: 09-30-2024 [facility] Facility:[facility] Start: 09-18-2024 End: 09-18-2024 [facility] Facility:[facility] Start: 04-08-2024 End: 04-08-2024 ambulatory [facility] Facility:[facility] Start: 02-25-2024 End: 02-25-2024 ambulatory [facility] Facility:[facility] Start: 02-25-2024 End: 02-25-2024 Patient encounter procedure Bobby Leija MD Work Phone: Otolaryngology Comment on above: 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); History of cholesteatoma Mixed conductive and sensorineural hearing loss of both ears (Primary Dx); Dysfunction of both eustachian tubes; Pulsatile tinnitus, bilateral; Ear pressure, bilateral; Otalgia of both ears Start: 01-08-2024 Orders Only Bobby Jackson Work Phone: Otolaryngology Comment on above: Other specified hear ing loss, unspecified ear (Primary Dx) Start: 08-30-2023 End: 08-30-2023 ambulatory [facility] Work Phone: Start: 08-30-2023 End: 08-30-2023 Patient encounter procedure [facility] Start: 07-24-2023 End: 07-24-2023 ambulatory [facility] Work Phone: Start: 07-24-2023 End: 07-24-2023 Patient encounter procedure [facility] Start: 06-14-2023 End: 06-14-2023 Patient encounter procedure [facility] Start: 05-08-2023 End: 05-08-2023 ambulatory [facility] Work Phone: Start: 05-08-2023 End: 05-08-2023 Patient encounter procedure [facility] Start: 02-14-2023 End: 02-14-2023 Patient encounter procedure [facility] Start: 06-19-2017 Ambulatory Josilynne Narayananan Facility:[facility] Start: 06-04-2017 Ambulatory Jessica SEUN Saravia Facilit y:[facility] Start: 05-27-2017 Ambulatory Fior Boogie ity:[facility] Start: 05-20-2017 Ambulatory Raleigh Meng Facility :[facility] Start: 05-17-2017 Ambulatory Jessica LARD TUB WASHER Saravia Facilit y:[facility] Start: 05-15-2017 Ambulatory Jessica LARD TUB WASHER [place] Facilit y:[facility] Procedures Date Procedure Procedure Detail Performing Clinician Start: 02-25-2024 HEARING TEST/AUDIOGRAM Bobby Leija MD Work Phone: Plan of Treatment Date Care Activity Detail Author Start: 02-14-2033 Urine microalbumin profile DTaP,Tdap,Td Vaccine (2 - Td or Tdap) [facility] Start: 05-10-2024 Influenza vaccination Influenz a Vaccine (Season Ended) [facility] Start: 03-26-2024 End: 03-26-2024 Patient encounter procedure 03/26/2024 9:45 AM EDT Office Visit Otolaryngology [address] [place] [address] Bobby Leija MD [address] [place] [id number] Follow Up Otolaryngology Comment on above: Follow Up Start: 02-25-2024 End: 02-25-2024 Patient encounter procedure Audiology Comment on above: Cholesteatoma, heari ng is worse, Pain with hearing aids, dizziness, ringing, fullness, drainage Start: 09-09-2023 Behavioral Health Screening Behavioral Health Screening [facility] Start: 05-10-2023 Covid-19 Vaccine () Covid-19 Vaccine () [facility] Start: 05-10-2023 Covid-19 Vaccine () Covid-19 Vaccine () [facility] Start: 2021 Screening for malignant neoplasm of breast Mammogram Screening [facility] Start: 2011 Screening for malignant neoplasm of cervix HPV Testing [facility] Start: 2002 Screening for malignant neoplasm of cervix [facility] Start: 2000 Hepatitis B Vaccine (1 of 3 - 19+ 3-dose series) Hepatitis B Vaccine (1 of 3 - 19+ 3-dose series) [facility] Start: 2000 Urine microalbumin profile DTaP,Tdap,Td Vaccine (1 - Tdap) [facility] Start: 1999 Hepatitis C screening Hepatitis C Sc reening [facility] Start: 1999 HIV screening HIV Screening [facility] End: 01-08-2025 HEARING TEST/AUDIOGRAM HEARING TEST/AUDIOGRAM Audiology Routine Other specified hearing loss, unspecified ear 1 Occurrences starting 01/08/2024 until 01/08/[address] [facility] Work Phone: Comment on above: 1 Occurrences starti ng 01/08/2024 until 01/08/2025 Immunizations Immunization Date Immunization Notes Care Provider Eduardo meléndez 05-30-2015 influenza virus vacc ine, unspecified formulation Bobby Leija MD Work Phone: [facility] Payers Date Payer Category Payer Self-pay [id number] 2019 Private Health Insurance [facility] CHOICE PLUS [id number] 2019-Present [phone] [address] [place] [address] HMO [id number] 2015 Unknown [id number] Unknown [id number] Unknown [id number] Unknown [id number] Social History Date Type Detail Facility Start: 02-23-2016 End: 02-23-2016 Tobacco smoking status MNIS Unknown if ever smoked [facility] Start: 1980 Sex Assigned At Female [facility] Start: 06-05-[address] 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 (finding) [facility] Start: 08-18-2020 End: 02-25-2024 History of Social function [facility] Start: 08-18-2020 End: 02-25-2024 Area Deprivation Index [facility] National Score (1-10 0), lower number is lower risk Not on file [facility] Start: 1980 Sex Assigned At Not on file [facility] Medical Equipment Procedure Code Equipment Code Equipment Origin al Text Equipment Identifier Dates Prosthesis Porp [place] Ossicular - [id number] Start: 10-29-2016 Tube 1.32mm Shor t T Blue Silicone 4.8mm Ventilation Soft Modify Less Clogg - [id number] Start: 10-29-2016 Progress note 02-25-2024 Note Date & Type Note Facility 02-25-2024 Note HNO ID: [id number] Author: BOBBY LEIJA MD Service: ? Author Type: Physician Type: Progress Notes Filed: 02/25/2024 08:40 Note Text: SECTION OF OTOLOGY, NEUROTOLOGY AND LATERAL SKULL BASE SURGERY [facility] [place], [facility] Referred by No ref. provider found Chief Complaint: Left sided drainage HPI: Fabian Mendoza is a 43 year old female who reports Previous history 2012: Left ear. Tplasty with OCR. Pato. 2017: Right ear. R Tmastoid Right cholesteatoma status post right tympanoplasty and mastoid Left T-tube placement Bilateral eustachian tube dilation in October 2016. Previously taken care of by Dr. Borja felt fullness in her right ear more than her left ear. Dr. Borja Noted that there was irregularity in the attic of the left ear. Possible recurrent cholesteatoma of the left side on Dr. Lee last evaluation. Bilateral moderate sloping to profound sensorineural hearing loss Word recognition score 100% AD; 90 left ear Today: She explains that for the last year her left ear has been draining. Feels like her left ear is muffled. Denies pain. She is using her hearing aids and denies a big change in her hearing. Past Medical History: She has a past medical history of Cholesteatoma (02/2012) and Hypothyroid. Past Surgical History: She has a past surgical history that includes ear surgery hx (Right, 02/2012) and myringotomy with insertion otolaryn (Left, 02/2012). Social History: She reports that she has never smoked. She has never used smokeless tobacco. She reports that she does not drink alcohol. Physical Exam: A comprehensive ear, nose, throat/head and neck exam was performed. Pertinent findings include: See nurse intake for vitals Ears: Right ear - Pinna normal EAC clear TM reconstructed with cartilage graft prominent in posterior/superior quadrant. Anterior aspect of pars tensa was covered with myringosclerosis.. Left ear - Pinna normal EAC coated with cerumen. Thin sheet of cerumen., TM surface irregular. Granulation tissue on the posterior superior aspect of pars tensa extending towards the tube. This was then granulation tissue. The tube was removed. Neuro - Cranial Nerves: CN V - intact Right CN 7 - HB 1 Left CN 7 - HB 1 No dysphonia or dysarthria Shoulder and/or SCM strength normal Constitutional: Well appearing, typically developed, no acute distress Eyes: extra-ocular muscles intact, sclera white, pupils grossly symmetric Lymphatic: no visible cervical lymphadenopathy Respiratory: unlabored breathing with no grossly audible stridor or wheezing Skin: no obvious skin lesions of visible skin of face, neck PROCEDURE NOTE: Otomicroscopy A microscope was used to evaluate the ears. Micro-instruments (curettes and/or suction) were used to clean the ear canal and obtain a clear view of the tympanic membranes. All relevant findings are detailed in the Physical Exam findings as listed above. The patient tolerated the procedure well and there were no complications. Audiogram (personally reviewed and interpreted): A screenshot of the audiogram from 02/25/2024 is included if available electronically at the time of the visit. Moderate sloping to profound mixed hearing loss; WRS 100 AD, 90 Imaging (personally reviewed and interpreted): No imaging Assessment: Left sided chronic otitis media secondary to t-tube. T-tube removed. History of bilateral cholesteatoma s/p right sided Tmastoid in 2016 and left sided tympanoplasty with OCR in 2011. No evidence of cholesteatoma today. Plan: Ciprodex drops bid for 14 days. Return to clinic in 1 month. If drainage persists, then we recommend CT Temporal Bone. Bobby Leija III, MD [facility] History of Present illness Narrative 02-25-2024 Bobby Leija MD - 02/25/2024 8:15 AM EDT Note Date & Type Note Facility 02-25-2024 History of Presen t illness Narrative Images from the original note were not included. SECTION OF OTOLOGY, NEUROTOLOGY AND LATERAL SKULL BASE SURGERY Head [facility] Neck [place], [facility] Referred by No ref. provider found Chief Complaint: Left sided drainage HPI: Fabian Mendoza is a 43 year old female who reports Previous history 2012: Left ear. Tplasty with OCR. Pato. 2017: Right ear. R Tmastoid Right cholesteatoma status post right tympanoplasty and mastoid Left T-tube placement Bilateral eustachian tube dilation in October 2016. Previously taken care of by Dr. Borja felt fullness in her right ear more than her left ear. Dr. Borja Noted that there was irregularity in the attic of the left ear. Possible recurrent cholesteatoma of the left side on Dr. Lee last evaluation. Bilateral moderate sloping to profound sensorineural hearing loss Word recognition score 100% AD; 90 left ear Today: She explains that for the last year her left ear has been draining. Feels like her left ear is muffled. Denies pain. She is using her hearing aids and denies a big change in her hearing. Past Medical History: She has a past medical history of Cholesteatoma (02/2012) and Hypothyroid. Past Surgical History: She has a past surgical history that includes ear surgery hx (Right, 02/2012) and myringotomy with insertion otolaryn (Left, 02/2012). Social History: She reports that she has never smoked. She has never used smokeless tobacco. She reports that she does not drink alcohol. Physical Exam: A comprehensive ear, nose, throat/head and neck exam was performed. Pertinent findings include: See nurse intake for vitals Ears: Right ear - Pinna normal EAC clear TM reconstructed with cartilage graft prominent in posterior/superior quadrant. Anterior aspect of pars tensa was covered with myringosclerosis.. Left ear - Pinna normal EAC coated with cerumen. Thin sheet of cerumen., TM surface irregular. Granulation tissue on the posterior superior aspect of pars tensa extending towards the tube. This was then granulation tissue. The tube was removed. Neuro - Cranial Nerves: CN V - intact Right CN 7 - HB 1 Left CN 7 - HB 1 No dysphonia or dysarthria Shoulder and/or SCM strength normal Constitutional: Well appearing, typically developed, no acute distress Eyes: extra-ocular muscles intact, sclera white, pupils grossly symmetric Lymphatic: no visible cervical lymphadenopathy Respiratory: unlabored breathing with no grossly audible stridor or wheezing Skin: no obvious skin lesions of visible skin of face, neck PROCEDURE NOTE: Otomicroscopy A microscope was used to evaluate the ears. Micro-instruments (curettes and/or suction) were used to clean the ear canal and obtain a clear view of the tympanic membranes. All relevant findings are detailed in the Physical Exam findings as listed above. The patient tolerated the procedure well and there were no complications. Audiogram (personally reviewed and interpreted): A screenshot of the audiogram from 02/25/2024 is included if available electronically at the time of the visit. Moderate sloping to profound mixed hearing loss; WRS 100 AD, 90 Imaging (personally reviewed and interpreted): No imaging Assessment: Left sided chronic otitis media secondary to t-tube. T-tube removed. History of bilateral cholesteatoma s/p right sided Tmastoid in 2017 and left sided tympanoplasty with OCR in 2011. No evidence of cholesteatoma today. Plan: Ciprodex drops bid for 14 days. Return to clinic in 1 month. If drainage persists, then we recommend CT Temporal Bone. Bobby Leija III, MD documented in this encounter [facility] Nurse Note 02-25-2024 Dilcia Bergeron RN - 02/25/2024 8:12 AM EDT Note Date & Type Note Facility 02-25-2024 Nurse Note Tobacco Use: Never Was smoking cessation packet given? N/A - Patient is a non-smoker or quit >1 year ago. Was a referral initiated?N/A Patient is a non-smoker [facility] Nurse Note 02-25-2024 Dilcia Bergeron RN - 02/25/2024 8:12 AM EDT Note Date & Type Note Facility 02-25-2024 Nurse Note Tobacco Use: Never Was smoking cessation packet given? N/A - Patient is a non-smoker or quit >1 year ago. Was a referral initiated?N/A Patient is a non-smoker documented in this encounter [facility] History of Present illness Narrative 02-25-2024 Roxanne Barraza AUD - 02/25/2024 7:30 AM EDT Note Date & Type Note Facility 02-25-2024 History of Presen t illness Narrative [facility] [place] AUDIOLOGIC EVALUATION REPORT Name: Fabian Mendoza [facility]CF#: [id number] Date of Service: 02/25/2024 Date of : 1980 Age: [age] year old Referred by: Bobby Leija MD [address] [place] [address] Referred for: Evaluation of suspected change in hearing, tinnitus, or balance. Referral documented: In an order in [facility] (procedure tab) Patient's major complaints: Reduced hearing left ear greater than right ear, tinnitus in both ears, dizziness/vertigo/imbalance, re-test hearing bilateral, otalgia in both ears, pressure/fullness in both ears Fabian was seen for repeat audiologic evaluation at the request of Bobby Leija MD, with complaints of bilateral otalgia, decreased hearing sensitivity of both ears, bilateral aural fullness and bilateral pulsatile tinnitus. She denied that the pulsating tinnitus corresponds with her heartbeat. Patient reported occasional unsteadiness when standing up too quickly. Otologic history is significant for bilateral cholesteatoma, bilateral eustachian tube dysfunction, bilateral mixed hearing loss; right tympanomastoidectomy with ossicular chain reconstruction (s/p 10/29/2016), bilateral eustachian tube dilation and left T-tube placement (s/p 10/29/2016). Patient has [employer] Opn 3 miniRITE devices dispensed at this clinic in 2018. She reported she has not been utilizing her devices lately due to perceived otalgia. Today patient denied history of noise exposure or ototoxicity. IMPRESSIONS RIGHT EAR: Mixed (conductive and sensorineural) hearing loss LEFT EAR: Mixed (conductive and sensorineural) hearing loss Comparison of today's results with previous test results (08/20/2017): Today's results reveal no significant change in hearing sensitivity in either ear. AUDIOLOGIC EVALUATION Following is a brief interpretation of the obtained findings from the audiologic evaluation. Refer to the Auditory Test Record for complete audiometric results. The patient was counseled about the test findings and appropriate audiologic recommendations were made. SUMMARY: Audiogram can be viewed under Forms/Audiology/SmartForm. OTOSCOPY RIGHT EAR: Otoscopic inspection revealed ear canal was clear. LEFT EAR: Otoscopic inspection revealed ear canal was clear with T-tube visualized. TYMPANOMETRY Description of procedure: This test is an objective evaluation of middle ear function. CPT code: 22660 RIGHT EAR: Normal ME pressure with reduced TM compliance (mobility). LEFT EAR: Negative (-239 daPa) pressure with reduced TM compliance (mobility). ACOUSTIC REFLEXES Description of procedure: This test is an objective measure of auditory and facial nerve pathways. RIGHT EAR PROBE EAR: (ipsi right stimulus ear; contralateral left stimulus ear): Acoustic Reflex Pattern Did not test. Acoustic Reflex Decay (left stimulus ear): Did not test. LEFT EAR PROBE EAR: (ipsi left stimulus ear; contralateral right stimulus ear): Acoustic Reflex Pattern Did not test. Acoustic Reflex Decay (right stimulus ear):Did not test. PURE TONE AUDIOMETRY AND SPEECH TESTING Description of procedure: This test is an objective evaluation hearing sensitivity via air and bone conduction and speech recognition testing. CPT code: 94732 RIGHT EAR: Hearing Sensitivity: Mild sloping to profound mixed hearing loss. Word Recognition Score: Excellent (100%). WRS is consistent with hearing sensitivity. Words were presented at 75 dB HL is above (greater than or equal to 60 dB HL) intensity level for average conversational speech. The NU-6 Ordered by Difficulty Word List (10 words) was used for testing. Contralateral masking was used. LEFT EAR: Hearing Sensitivity: Moderate sloping to profound mixed hearing loss. Word Recognition Score: Excellent (90%). WRS is consistent with hearing sensitivity. Words were presented at 75 dB HL which is above (greater than or equal to 60 dB HL) intensity level for average conversational speech. The NU-6 Ordered by Difficulty Word List (10 words) was used for testing. Contralateral masking was used. RECOMMENDATIONS *Continue medical follow up with Bobby Leija MD. *Recommend patient return for a hearing aid check with betting agency counter clerk for maintenance and potential programming needs. *Retest as medically indicated. Nancy Alonzo BA Doctor of Audiology (Inder) Rn Endocrinology Testing was obtained under the direct supervision of Inder Ward CCC-A I verify that I have reviewed the history, test results, and interpretation for this patient. Inder Ward CCC-A Supervising Camp Director BERNABE Abbrev- iation Definition Degree of hearing sensitivity dB range WNL within normal limits WNL 0 - 20 SNHL sensorineural hearing loss Mild 20-40 CHL conductive hearing loss Moderate 40-55 MHL mixed hearing loss Moderately-Severe 55-70 WRS word recognition score Severe 70-90 ME middle ear Profound 90 + TM tympanic membrane documented in this encounter [facility] Progress note 02-25-2024 Note Date & Type Note Facility 02-25-2024 Note HNO ID: [id number] Author: ROXANNE BARRAZA AUD Service: ? Author Type: Camp Director Type: Progress Notes Filed: 02/25/2024 13:42 Note Text: [facility] Ne[facility] [place] AUDIOLOGIC EVALUATION REPORT Name: Fabian Mendoza [facility]#: [id number] Date of Service: 02/25/2024 Date of : 1980 Age: [age] year old Referred by: Bobby Leija MD [facility] [place] [id number] Referred for: Evaluation of suspected change in hearing, tinnitus, or balance. Referral documented: In an order in Epic (procedure tab) Patient's major complaints: Reduced hearing left ear greater than right ear, tinnitus in both ears, dizziness/vertigo/imbalance, re-test hearing bilateral, otalgia in both ears, pressure/fullness in both ears Fabian was seen for repeat audiologic evaluation at the request of Bobby Leija MD, with complaints of bilateral otalgia, decreased hearing sensitivity of both ears, bilateral aural fullness and bilateral pulsatile tinnitus. She denied that the pulsating tinnitus corresponds with her heartbeat. Patient reported occasional unsteadiness when standing up too quickly. Otologic history is significant for bilateral cholesteatoma, bilateral eustachian tube dysfunction, bilateral mixed hearing loss; right tympanomastoidectomy with ossicular chain reconstruction (s/p 10/29/2016), bilateral eustachian tube dilation and left T-tube placement (s/p 10/29/2016). Patient has [employer] Opn 3 miniRITE devices dispensed at this clinic in 2018. She reported she has not been utilizing her devices lately due to perceived otalgia. Today patient denied history of noise exposure or ototoxicity. IMPRESSIONS RIGHT EAR: Mixed (conductive and sensorineural) hearing loss LEFT EAR: Mixed (conductive and sensorineural) hearing loss Comparison of today's results with previous test results (08/20/2017): Today's results reveal no significant change in hearing sensitivity in either ear. AUDIOLOGIC EVALUATION Following is a brief interpretation of the obtained findings from the audiologic evaluation. Refer to the Auditory Test Record for complete audiometric results. The patient was counseled about the test findings and appropriate audiologic recommendations were made. SUMMARY: Audiogram can be viewed under Forms/Audiology/SmartForm. OTOSCOPY RIGHT EAR: Otoscopic inspection revealed ear canal was clear. LEFT EAR: Otoscopic inspection revealed ear canal was clear with T-tube visualized. TYMPANOMETRY Description of procedure: This test is an objective evaluation of middle ear function. CPT code: 63866 RIGHT EAR: Normal ME pressure with reduced TM compliance (mobility). LEFT EAR: Negative (-239 daPa) pressure with reduced TM compliance (mobility). ACOUSTIC REFLEXES Description of procedure: This test is an objective measure of auditory and facial nerve pathways. RIGHT EAR PROBE EAR: (ipsi right stimulus ear; contralateral left stimulus ear): Acoustic Reflex Pattern Did not test. Acoustic Reflex Decay (left stimulus ear): Did not test. LEFT EAR PROBE EAR: (ipsi left stimulus ear; contralateral right stimulus ear): Acoustic Reflex Pattern Did not test. Acoustic Reflex Decay (right stimulus ear):Did not test. PURE TONE AUDIOMETRY AND SPEECH TESTING Description of procedure: This test is an objective evaluation hearing sensitivity via air and bone conduction and speech recognition testing. CPT code: 92756 RIGHT EAR: Hearing Sensitivity: Mild sloping to profound mixed hearing loss. Word Recognition Score: Excellent (100%). WRS is consistent with hearing sensitivity. Words were presented at 75 dB HL is above (greater than or equal to 60 dB HL) intensity level for average conversational speech. The NU-6 Ordered by Difficulty Word List (10 words) was used for testing. Contralateral masking was used. LEFT EAR: Hearing Sensitivity: Moderate sloping to profound mixed hearing loss. Word Recognition Score: Excellent (90%). WRS is consistent with hearing sensitivity. Words were presented at 75 dB HL which is above (greater than or equal to 60 dB HL) intensity level for average conversational speech. The NU-6 Ordered by Difficulty Word List (10 words) was used for testing. Contralateral masking was used. RECOMMENDATIONS *Continue medical follow up with Bobby Leija MD. *Recommend patient return for a hearing aid check with betting agency counter clerk for maintenance and potential programming needs. *Retest as medically indicated. Nancy Alonzo BA Doctor of Audiology (Inder) Rn Endocrinology Testing was obtained under the direct supervision of Inder Ward, EDUARDA-A I verify that I have reviewed the history, test results, and interpretation for this patient. Roxanne Bishop, AuD, CCC-A Supervising [employer] Director BERNABE Abbrev- iation Definition Degree of hearing sensitivity dB range WNL within normal limits WNL 0 - 20 SNHL sensorineural hearing loss Mild 20-40 CHL conductive hearing loss Moderate (more content not included)... 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- Primary Chronic tubotympanic suppurative otitis media History of cholesteatoma Personal history of other disorders of nervous system and sense organs documented in this encounter [facility] Evaluation note Note Date & Type Note Facility Evaluation note Diagnosis Mixed conductive and sensorineural hearing loss of both ears- Primary Mixed hearing loss, bilateral Dysfunction of both eustachian tubes Dysfunction of Eustachian tube Pulsatile tinnitus, bilateral Ear pressure, bilateral Otalgia of both ears Otalgia, unspecified documented in this encounter [facility] Summary Purpose Family History No Family History Records FoundNo Family History Records FoundNo Family History Records Found Advance Directives No Advanced Directives Records Found Advance Directive Response Recorded Date/ Time Advance Directives No February 22 2:42pm Living Will No February 23, 2016 2:42pm Power of Screw Machine Set Up Operator Tool No February 22 6 2:42pm Advance Directive Response Recorded Date/ Time Advance Directives No February 22 1:42pm Living Will No February 23, 2016 1:42pm Power of Screw Machine Set Up Operator Tool No February 22 6 1:42pm Reason for Referral Specialty Diagnoses / Procedures Referred By Contac t Referred To Contact Diagnoses Other specified hearing loss, unspecified ear Procedures HEARING TEST/AUDIOGRAM COMPRE AUDIOMETRY THRESHOLD BROCKAL Bobby Lincoln MD [address] [place] [address] [facility] [address] [place] [id number] Referral ID Status Reason Start Date Expiration Date Visits Requested Visits Authorized [id number] Authorized Auto-Generat ed Referral 01/08/2024 01/08/2025 1 1 Additional Source Comments INFORMATION SOURCE (unrecogn ized section and content) DATE CREATED AUTHOR 03/04/2018 [facility] yady Manzanares DATE CREATED AUTHOR AUTHOR'S ORGANIZ ATION 02/26/2024 [facility] DATE CREATED AUTHOR AUTHOR'S ORGANIZ ATION 10/24/2024 [facility] Care Teams (unrecognized sec tion and content) Team Status: Active Member Role Status Dates Dr. Toribio Tao MD Family Provider Active Dr. Toribio Tao MD Primary Care Provider Activ e Team Status: Inactive Member Role Status Dates Dr. Toribio Tao MD Primary Care Provider, Atte nding Provider Active [employer] [facility] Worker Relationship Specialty Start Date End Date Jill Tao MD [address] [facility] [place] [address] PCP - General Family Medicine 03/27/16 [employer] [facility] Work[employer] Relationship Specialty Start Date End Date Jill Tao MD [address] [place] [address] PCP - General Family Medicine 03/27/16 [employer] [facility] Worker Relationship Specialty Start Date End Date Jill Tao MD [address] [place] [address] PCP - General Family Medicine 03/27/16 Goals (unrecognized section and content) Goals may be documented in a n alternate sectionGoals may be documented in an alternate sectionGoals may be documented in an alternate section Source Comments (unrecognize d section and content) In the event this informatio n is protected by the Federal Confidentiality of Alcohol and Drug Abuse Patient Records regulations: The Federal rules restrict any use of the information to criminally investigate or prosecute any alcohol or drug abuse patient.[facility] the event this information is protected by the Federal Confidentiality of Alcohol and Drug Abuse Patient Records regulations: The Federal rules restrict any use of the information to criminally investigate or prosecute any alcohol or drug abuse patient.[facility] the event this information is protected by the Federal Confidentiality of Alcohol and Drug Abuse Patient Records regulations: The Federal rules restrict any use of the information to criminally investigate or prosecute any alcohol or drug abuse patient.[facility] Reason for Visit (unrecogniz ed section and content) Reason Comments Ear Problem L ear, drainage, rin ging, fullness. Worsened over the last year Reason Comments Hearing Loss Specialty Diagnoses / Procedures Referred By Contac t Referred To Contact Diagnoses Other specified hearing loss, unspecified ear Procedures HEARING TEST/AUDIOGRAM COMPRE AUDIOMETRY THRESHOLD BROCKAL Bobby Lincoln MD [facility] [place] [address] [facility] [address] [place] [address] Referral ID Status Reason Start Date Expiration Date V isits Requested Visits Authorized [id number] Closed Auto-Generate d Referral 01/08/2024 01/08/2025 1 FOR RECORDS PERTAINING TO PATIENTS WHO ARE OR HAVE BEEN ENROLLED IN A CHEMICAL DEPENDENCY/SUBSTANCEABUSE PROGRAM, SOME INFORMATION MAY BE OMITTED. This clinical summary was aggregated from multiple sources. Caution should be exercised in using it in the provision of clinical care. This summary normalizes information from multiple sources, and as a consequence, information in this document may materially change the coding, format and clinical context of patient data. In addition, data may be omitted in some cases. CLINICAL DECISIONS SHOULD BE BASED ON THE PRIMARY CLINICAL RECORDS. [employer] [facility]. provides no warranty or guarantee of the accuracy or completeness of information in this document.
== END | disposition home or self-care (01) ==
LOC: MFPLAB 09:51
PROVIDERS: PCP Family Medicine; Referring Provider Family Medicine; Visit Provider Family Medicine
DX: Z13.220 Encounter for screening for lipoid disorders (principal); E03.9 Hypothyroidism, unspecified; Z13.1 Encounter for screening for diabetes mellitus
CPT/HCPCS: 36415; 80048; 80061; 84443